=== PATIENT | male | born 1990 | race Caucasian/White ===

== ENCOUNTER 2021-04-01 22:22 | Emergency (ER) | payer BC ==
[2021-04-02 00:59] LABS: HIV (1/2) Antibody/Antigen Non-Reactive (NonReactive); HIV 1/2 INDEX 0.12 S/CO (<1.00); Hep C IgG Ab Non-Reactive (NonReactive); Hep C Index 0.08 S/CO (0-0.79)
[2021-04-02 01:46] LABS: HBSAB Concentration 489.32 mIU/mL; Hep B Surf AB Reactive (NonReactive)
== END 2021-04-01 23:18 | disposition home or self-care (01) ==
LOC: ERS 22:22
DX: Z77.21 Contact with and (suspected) exposure to potentially hazardous body fluids (principal); Y04.1XXA Assault by human bite, initial encounter
CPT/HCPCS: 36415; 86706; 86803; 87389; 99283

== ENCOUNTER 2021-12-05 15:01 | Emergency (ER) | payer OTHER, BC ==
[2021-12-05 18:52] LABS: HIV (1/2) Antibody/Antigen Non-Reactive (NonReactive); HIV 1/2 INDEX 0.09 S/CO (<1.00); Hep C IgG Ab Non-Reactive (NonReactive); Hep C Index 0.16 S/CO (0-0.79)
[2021-12-05 18:55] LABS: HBSAB Concentration 353.41 mIU/mL; Hep B Surf AB Reactive (NonReactive)
== END 2021-12-05 16:19 | disposition home or self-care (01) ==
LOC: ERS 15:01
DX: Z77.21 Contact with and (suspected) exposure to potentially hazardous body fluids (principal); F17.220 Nicotine dependence, chewing tobacco, uncomplicated
CPT/HCPCS: 36415; 99283